=== PATIENT | male | born 1985 | race Caucasian/White ===

== ENCOUNTER 2024-08-12 06:23 | Day surgery (SDC) | payer OTHER, SELFPAY ==
[2024-08-12] VITALS (22 sets, daily range): BP systolic 92–137; BP diastolic 62–98; BMI 35.1
[2024-08-12] MEDS: NSS 333 ML IV (07:15)
[2024-08-12 07:17] LABS: Glucose - Point of Care 235 mg/dl (70-99)
[2024-08-12] MEDS: LOW STRENGTH ASPIRIN 81 MG PO (07:26)
[2024-08-12] MEDS: BRILINTA 90 MG PO (07:36)
[2024-08-12] MEDS: NSS 1000 IV (09:26)
[2024-08-12 09:34] LABS: Glucose - Point of Care 154 mg/dl (70-99)
[2024-08-12 09:40] LABS: ACT-LR - POC > 397 Seconds (116-155)
[2024-08-12 09:40] LABS: ACT-LR - POC > 397 Seconds (116-155)
--- NOTE | 2024-08-12 09:57 | ITS.CL.ANGIO ---
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
Angioplasty
Procedure Report:
LEFT HEART CATHETERIZATION
Date of Procedure: August 12, 2024
Procedures performed:
1: Coronary angiography
2: Percutaneous coronary intervention of the chronic total occlusion of the left circumflex artery with placement of a 2.25 x 26 mm [place] drug-eluting stent postdilated in the midportion with a 2.5 balloon at high pressure and proximally with a 2.75
mm balloon at high pressure
Primary Care Physician: Dr. Nahomy Graham
Primary Community Center Director: Myself
INDICATION: The patient is a 39-year-old man with a past medical history significant for coronary artery disease, hyperlipidemia, ongoing daily marijuana smoking, and recently diagnosed diabetes who presented with an inferior ST elevation [place] to
[facility] on July 23 treated with primary PCI with drug-eluting stenting of the right coronary artery. At that time a short segment chronic occlusion of the proximal circumflex was noted with faint left to left and right to left
collaterals. He presents today for a staged complete revascularization attempt at the chronic total occlusion of the left circumflex artery.
ACCESS: The patient was prepped and draped in usual sterile fashion. A 6 Dutch sheath was placed in the right radial artery using the Seldinger over the wire technique.
HEMODYNAMIC FINDINGS (mmHg):
LV(s/d,EDP):. 105/12, 27
Ao(s/d,m): 105/78, 93
ANGIOGRAPHIC FINDINGS:
Single-plane Left Ventriculography in ROSENTHAL Projection: Not done.
Coronary Angiography:
Dominance: Right
Left Main: Medium caliber, normal.
Left Anterior Descending: The left anterior descending artery is a medium caliber vessel that gives rise to a high first diagonal branch that is small in caliber and has diffuse severe 80 to 90% disease with CAITY II flow and a 1 mm vessel. The
second diagonal branch is a moderate sized vessel that has diffuse moderate luminal irregularities with 30 to 40% proximal disease and normal distal flow. The LAD itself is patent with mild to moderate nonobstructive luminal irregularities and
CAITY-3 flow distally.
Left Circumflex: The left circumflex has a functional proximal occlusion after a left atrial branch. Left to left filling of a distal OM is noted.
Right Coronary: The right coronary artery is a large-caliber dominant vessel that gives rise to a medium caliber posterior descending artery and small posterior left ventricular branch. The right coronary artery has moderate diffuse luminal
irregularities throughout the AV groove. The previously placed mid RCA stent is widely patent. On the ROSENTHAL view, contrast filling outside the stented segments consistent with a ectatic area of ruptured plaque is noted. Despite this there is CAITY-3
flow distally. The posterior descending artery has moderate luminal irregularities with a smooth 50% stenosis and normal flow.
Percutaneous Coronary Intervention (PCI): The patient was pretreated with aspirin and ticagrelor. Unfractionated heparin was given. A 6 Dutch XB 3.5 guiding catheter was used as it was difficult to engage with a larger guide given the fact that
he has a fairly short aortic root which made engaging the left main challenging. Once the left main was engaged, a Hi-Torque floppy wire was advanced and positioned in the LAD to stabilize the guide and allow the guide to be pulled back so that a
second wire could be used to get into the circumflex. A Fielder XT was used in combination with a DLS microcatheter to successfully cross the occlusion into the distal major obtuse marginal branch. Distal intraluminal position was
confirmed with a injection through the microcatheter. The wire was exchanged for a Extra S'Port wire. A 1.5 x 15 mm balloon was used to dilate the occluded segment. This restored antegrade flow. Next a 2.0 x 20 mm balloon was used to redilate
the occlusive segment. Finally a 2.25 x 26 mm [place] drug-eluting stent was deployed at the lesion. A 2.5 mm diameter noncompliant balloon was used to post dilate the mid/distal portion of the stent at 16 alex. Next a 2.75 mm diameter noncompliant
balloon was used to predilate the midportion of the stent at 6 alex and then treat the most proximal portion of the stented segment at 18 alex. Care was taken to stay within the stented margins.
FINAL RESULT: 0% in-stent residual stenosis with an excellent angiographic result and CAITY-3 flow in all vessels.
Fluoroscopy Time (min): 19.3
Radiation Dose (mGy): 2018
DAP (Gy.cm2): 85
Closure device: None. A TR band was applied for hemostasis at the right wrist.
Complications: None.
ASSESSMENT:
1: Successful PCI of the left circumflex with placement of drug-eluting stent as described above.
2: Widely patent previously placed RCA stent.
3: Residual obstructive disease in the small diagonal branch. This can only be treated medically given its extremely small caliber and diffuse disease.
4: Elevated filling pressures. Of note the patient has a tendency to vagal and was given a liter of fluid before the case.
CONCLUSIONS and RECOMMENDATIONS:
1: Routine post drug-eluting stent medical therapy and monitoring. Continue post [place] medical therapy. Plan for same-day discharge if remains clinically stable.
2: Smoking cessation remains critical.
Santiago Singleton M.D.
Copy to: Dr. Nahomy Graham
[2024-08-12] MEDS: PROTONIX 40 MG PO (10:17)
--- NOTE | 2024-08-12 13:39 | PTCARENOTE ---
Cardiac rehab at pt bedside speaking to pt and pt's girlfriend and mom.
--- NOTE | 2024-08-12 13:48 | W.PN.UPDATE ---
Update Note
Progress Note Update
Pt seen post LCx PCI. Right radial cath site without ht/bleeding, non tender. OOB ambulating. Post EKG NSR 88, no acute changes. Understands importance of uninterrupted DAPT w/asa, brilinta as before. Will hold metformin post cath and resume in 48
hours. Cardiac rehab consulted. Followup with Dr. Singleton as scheduled. Home today if cath site/tele remain stable.
== END 2024-08-12 14:00 | disposition home or self-care (01) ==
LOC: CATH 06:23
PROVIDERS: ATTENDING PHYSICIAN Internal Medicine Interventional Cardiology
DX: I25.10 Atherosclerotic heart disease of native coronary artery without angina pectoris (principal); E78.5 Hyperlipidemia, unspecified; I25.2 Old myocardial infarction; E11.9 Type 2 diabetes mellitus without complications; Z95.5 Presence of coronary angioplasty implant and graft; Z79.82 Long term (current) use of aspirin; Z79.84 Long term (current) use of oral hypoglycemic drugs
CPT/HCPCS: C1725; C1769; C1887; 82962; 85347; 93005; 93458; C1874; C1894; C9600; C9607; Q9967